=== PATIENT | male | born 1995 ===

== ENCOUNTER 2017-05-05 04:37 | Emergency (ER) | payer SELFPAY ==
[2017-05-05 04:56] VITALS: BP 155/98
== END 2017-05-05 07:00 | disposition left against medical advice (07) ==
LOC: ED 04:37
DX: Z53.21 Procedure and treatment not carried out due to patient leaving prior to being seen by health care provider (principal)

== ENCOUNTER 2018-01-22 01:55 | Emergency (ER) | payer SELFPAY ==
[2018-01-22 03:17] VITALS: BP 133/74
[2018-01-22 08:40] LABS: Bilirubin,Urine NEG (Negative); Blood,Urine NEG (Negative); Color,Urine Straw (Yellow); Protein,Urine <15 mg/dL mg/dL (Negative); Urobilinogen,Urine < 2.0 mg/dL (<2.0)
--- NOTE | 2018-01-22 09:17 | Emergency Department Report ---
Chief Complaint: Back Pain/Injury Stated Complaint: BACK,LEG PAIN,STD Time Seen by Provider: 01/22/18 09:07 - HPI History of Present Illness: Patient is a 22-year-old male who is complaining of penile discharge for the past 23 days. Patient has been essentially active without condom. Patient also states of some small bumps at the edge of the penis. Patient denies any fevers chills nausea vomiting. Patient also COMPLAINING of chronic back pain. - ROS Review of Systems: All other systems are reviewed and are negative - Exam Vital Signs: Vital Signs 01/22/18 03:04 Temperature 97.9 F Pulse Rate 70 Blood Pressure 133/74 O2 Sat by Pulse 100 Oximetry Physical Exam: Patient has no penile swelling or erythema. There is very small fine papules on the head of the penis that are nontender. There are no sores or open lesions. Testicles are nontender. MSE screening note: Focused history and physical exam performed. Due to findings the following was ordered: ED Medical Decision Making - Medical Decision Making Patient's penile exam does not show any balanitis or cellulitis to the penis. It was suggested that the patient follow up with the health department to his not wanting to pain $150 hospital co-pay for nonmedical emergency. Patient given information for the health Department be discharged home. ED Disposition for MSE Clinical Impression: Urethritis Disposition: Z- MED SCREENING EXAM-LEFT Is pt being admited?: No Does the pt Need Aspirin: No Condition: Stable Referrals: PRIMARY CARE, [Primary Care Provider] - 3-5 Days Forms: STI Treatment and Prevention
== END 2018-01-22 09:22 | disposition left against medical advice (07) ==
LOC: ED 01:55
DX: N34.2 Other urethritis (principal); G89.29 Other chronic pain
CPT/HCPCS: 81001; 99283